=== PATIENT | female | born 1940 | race Caucasian/White ===

== ENCOUNTER 2016-11-19 14:14 | Emergency (ER) | payer SELFPAY ==
[~2016-11-19] VITALS: Ht 157.5 cm; Wt 73.0 kg
[2016-11-19] MEDS ORDERED: KETOROLAC 60MG/2ML VIAL IM ONE (15:15)
[2016-11-19 15:38] VITALS: BP 152/94
== END 2016-11-19 17:09 | disposition home or self-care (01) ==
LOC: ER 15:01
DX: S46.812A Strain of other muscles, fascia and tendons at shoulder and upper arm level, left arm, initial encounter (principal); S20.219A Contusion of unspecified front wall of thorax, initial encounter; V43.62XA Car passenger injured in collision with other type car in traffic accident, initial encounter; Y92.488 Other paved roadways as the place of occurrence of the external cause
CPT/HCPCS: 71010; 73030; 93005; 96372; 99284; J1885